=== PATIENT | female | born 1995 | race Caucasian/White ===

== ENCOUNTER 2020-03-16 11:51 | Emergency (ER) | payer OTHER ==
[~2020-03-16] VITALS: Ht 160 cm; Wt 59.0 kg
[2020-03-16] MEDS ORDERED: KEFLEX500 M1 PO (13:15)
[2020-03-16] MEDS ORDERED: HYDROCODON-ACE1 EAC7 PO (13:15)
[2020-03-16] MEDS ORDERED: BACTRIM DS TAB1 EACH PO (13:15)
[2020-03-16 13:31] VITALS: BP 138/80
== END 2020-03-16 13:32 | disposition home or self-care (01) ==
LOC: M.ERS 11:51
DX: L02.416 Cutaneous abscess of left lower limb (principal); M25.552 Pain in left hip